=== PATIENT | male | born 1970 | race African-American/Black ===

== ENCOUNTER 2018-12-07 17:33 | Emergency (ER) | payer SELFPAY ==
[~2018-12-07] VITALS: Ht 188 cm; Wt 150.0 kg
[2018-12-07 17:39] VITALS: BP 180/90
== END 2018-12-07 19:11 | disposition left against medical advice (07) ==
LOC: ER 17:33
DX: R41.82 Altered mental status, unspecified (principal); Z53.21 Procedure and treatment not carried out due to patient leaving prior to being seen by health care provider